=== PATIENT | female | born 1955 | race Caucasian/White ===

== ENCOUNTER → 2020-07-31 09:39 | Outpatient (BNVA) | payer OTHER, SELFPAY | PROVIDERS: Family Provider Family Medicine; Visit Provider Nurse Practitioner Family | DX: Z20.822 Contact with and (suspected) exposure to COVID-19 (principal) | CPT/HCPCS: 87635 ==

== ENCOUNTER → 2023-05-04 15:36 | Outpatient (BNVA) | payer MEDICARE, OTHER, SELFPAY | PROVIDERS: Family Provider Family Medicine; Visit Provider Specialist | DX: M25.562 Pain in left knee (principal); M25.561 Pain in right knee; M17.0 Bilateral primary osteoarthritis of knee | CPT/HCPCS: 20610; 73560; 73565; 99204; J7326 ==

== ENCOUNTER 2023-08-10 09:17 | Outpatient (RCR) | payer MEDICARE, OTHER, SELFPAY | END 2023-08-14 23:59 | disposition home or self-care (01) | LOC: SPT 09:17 | PROVIDERS: Family Provider Family Medicine; PCP Family Medicine; Visit Provider Physician Assistant Medical | DX: M17.11 Unilateral primary osteoarthritis, right knee (principal); M17.12 Unilateral primary osteoarthritis, left knee | CPT/HCPCS: 97161 ==

== ENCOUNTER → 2023-09-06 09:21 | Outpatient (BNVA) | payer MEDICARE, OTHER, SELFPAY | PROVIDERS: Family Provider Family Medicine; PCP Family Medicine; Visit Provider Student in an Organized Health Care Education/Training Program | DX: M17.11 Unilateral primary osteoarthritis, right knee (principal) | CPT/HCPCS: 99214 ==

== ENCOUNTER 2023-10-13 09:04 | Outpatient (CLI) | payer MEDICARE, OTHER, SELFPAY ==
[2023-10-13 09:29] LABS: Charge for UA Resulting for Rev
[2023-10-13 09:31] LABS: Basophils # 0.1 10^3/uL (0.0-0.1); Basophils % 1.2 %; Eosinophils # 0.1 10^3/uL (0.0-0.8); Eosinophils % 2.6 %; Hematocrit 42.5 % (36-47); Lymphocytes # 1.7 10^3/uL (0.8-4.8); Lymphocytes % 33.2 %; Mean Corpuscular HGB Conc 33.9 g/dL (30-55); Mean Corpuscular Hemoglobin 30.8 pg (27-33); Monocytes # 0.4 10^3/uL (0.2-0.9); Monocytes % 7.3 %; Neutrophils # 2.84 10^3/uL (1.8-7.7); Neutrophils % 55.7 %; Nucleated Red Blood Cells % 0 %; Platelet Count 302 10^3/cmm (157-399); Red Blood Count 4.67 10^6/uL (3.85-5.65); Red Cell Distribution Width 11.9 % (12.1-15.1); White Blood Count 5.09 10^3/uL (3.29-11.43)
[2023-10-13 09:47] LABS: Alanine Aminotransferase 13 U/L (0-33); Alkaline Phosphatase 95 U/L (35-105); Anion Gap 14.1 (5-19); Aspartate Amino Transferase 18 U/L (0-32); Blood Urea Nitrogen 15 mg/dL (8-23); Calcium 9.8 mg/dL (8.5-10.5); Carbon Dioxide 29 mmol/L (22-29); Chloride 99 mmol/L (98-107); Globulin 3.9 g/dL (1.3-4.6); Glomerular Filtration Rate 100.3 mL/min (90-130); Glucose 102 mg/dL (65-115); Osmolality Calculated 287 mOsm/kg (285-295); Potassium 4.1 mmol/L (3.5-5.1); Sodium 138 mmol/L (136-145); Total Bilirubin 0.6 mg/dL (0.15-1.2); Total Protein 8.9 g/dL (6.6-8.7)
[2023-10-13 10:54] LABS: Bilirubin Urine Negative (Negative); Blood Urine Negative (Negative); Glucose Urine UA Negative (Normal); Ketones Urine Negative (Negative); Leukocyte Esterase Urine Negative (Negative); Nitrate Urine Negative (Negative); Protein Urine Negative (Negative); Specific Gravity, Urine 1.004 (1.005-1.030); Urine Appearance Clear (CLEAR); Urine Color Yellow (Yellow); Urobilinogen Urine 0.2 mg/dL (Negative); pH Urine 6.5 (5-7)
[2023-10-13 11:02] LABS: Bacteria Urine None Seen /hpf; Hyaline Casts Urine 0-4 /lpf; Squamous Epithelial Cell Urine 0-5 /hpf (0-5); WBC Urine 0-5 /hpf (0-5)
[2023-10-13 11:07] LABS: Add Urine Culture? No
== END 2023-10-13 09:05 | disposition home or self-care (01) ==
LOC: LAB 09:08
PROVIDERS: Family Provider Family Medicine; PCP Family Medicine; Visit Provider Student in an Organized Health Care Education/Training Program
DX: Z01.818 Encounter for other preprocedural examination (principal)
CPT/HCPCS: 80053; 81003; 81015; 85025

== ENCOUNTER → 2023-10-24 11:07 | Outpatient (BNVA) | payer MEDICARE, OTHER, SELFPAY | PROVIDERS: Family Provider Family Medicine; PCP Family Medicine; Visit Provider Family Medicine | DX: Z01.818 Encounter for other preprocedural examination (principal); I49.8 Other specified cardiac arrhythmias | CPT/HCPCS: 93005 ==

== ENCOUNTER 2023-10-27 13:18 | Outpatient (CLI) | payer MEDICARE, OTHER, SELFPAY ==
--- NOTE | 2023-10-27 13:30 | CT_ITS ---
WS: [id number] CT RIGHT knee, noncontrast HISTORY: M17.11 - Unilateral primary osteoarthritis, right knee TECHNIQUE: Protocol for [facility] total knee replacement has been obtained. This includes axial imaging th rough the RIGHT hip, RIGHT knee and RIGHT ankle. DLP: 910.08 mGy.cm COMPARISON: 06/22/2023 Pelvis: No destructive bone lesions. Normal appearance of the soft tissues. RIGHT knee: Mild tricompartment joint space narrowing. No destructive bone lesions. Small suprapatell ar joint effusion. RIGHT ankle: Negative. CT/CT knee RT [facility] [id number] IMPRESSION: CT imaging provided for [facility] robotic total knee replacement.
== END 2023-10-27 13:19 | disposition home or self-care (01) ==
LOC: RAD 13:19
PROVIDERS: Family Provider Family Medicine; PCP Family Medicine; Visit Provider Student in an Organized Health Care Education/Training Program
DX: Z01.818 Encounter for other preprocedural examination (principal); M17.11 Unilateral primary osteoarthritis, right knee
CPT/HCPCS: 73700

== ENCOUNTER 2023-11-07 14:22 | Observation (INO) | payer MEDICARE, OTHER, SELFPAY ==
[2023-11-07] VITALS (16 sets, daily range): BP systolic 114–167; BP diastolic 59–98; PULSE 69–88; RESP 12–80; TEMP 36.1–37.1; O2SAT 94–100; BMI 21.4; BMI 20.7
--- NOTE | 2023-11-07 10:38 | W.PM.OPSFHP ---
Same Day Surgery H&P Indication for Procedure/HPI DATE OF PROCEDURE: November 07, 2023 CHIEF COMPLAINT/INDICATIONFOR SURGICAL PROCEDURE: Right knee degenerative joint disease PREOP DIAGNOSIS: Right knee degenerative joint disease PLANNED PROCEDURE: Operation Date: 11/07/23 12:00 Proposed Procedures p Teodoro Robot Total Knee Arthroplasty(Right) - Sen Hart DO Medications/Allergies* Home Medications Medication Instructions Recorded Confirmed Type No Known Home Medications 09/06/23 11/04/23 History Allergies/Adverse Reactions Allergy/AdvReac Type Severity Reaction Status Date / Time Sulfa (Sulfonamide Allergy Intermediate rash Verified 10/24/23 11:18 Antibiotics) Pertinent History/Comorbid Conditions* Social History Smoking and tobacco/nicotine status: never used tobacco/nicotine Alcohol intake: current Alcohol intake frequency: 0-2 Drinks per Day Substance/Drug Use: never Pertinent Exam Findings alert, oriented x 3, operative site marked and procedure specific exam findings Please refer to detailed orthopedic examination on 09/06/2023: Listed below: right Knee Exam: -ROM 0 to greater than 120 degrees -Patellar crepitus with ROM, tenderness to palpation over the retropatellar space -Positive patellar grind test -Medial joint line tenderness to palpation -Lateral joint line tenderness to palpation -Mild joint effusion -Negative Lenin's, but pain noted -Negative Chito's -Stable Varus and Valgus stress, 10 degree varus deformity correctable on examination -Gross motor sensory intact Recommendations Surgery/Procedure today Other Plans: Plan to proceed to the OR today for a right total knee arthroplasty?Teodoro robotic assisted. Patient is clear the preoperative clearance process she has had no change in overall health since her last visit she has had no new urinary symptoms at this point time she is ready to proceed with surgical intervention today she understands the ins and outs of procedure the risk benefits complication alternatives surgery and through shared decision-making elects proceed with surgical intervention today. All questions been answered at this time. Coding Level of Care Code Acute Code for Eduard Childress
[2023-11-07] MEDS: ketorolac 30 mg/mL INJ IVP (11:12)
[2023-11-07] MEDS: sodium chloride 0.9% 1,000 ML 30 ML IV (11:12)
[2023-11-07] MEDS: acetaminophen 1,000 MG/100 ML PIGGYBACK 400 MG IV ×2 (11:12→18:32)
[2023-11-07 11:15] LABS: Basophils # 0.1 10^3/uL (0.0-0.1); Basophils % 1.1 %; Eosinophils # 0.1 10^3/uL (0.0-0.8); Eosinophils % 1.3 %; Hematocrit 41.7 % (36-47); Lymphocytes # 1.6 10^3/uL (0.8-4.8); Lymphocytes % 28.9 %; Mean Corpuscular HGB Conc 33.3 g/dL (30-55); Mean Corpuscular Hemoglobin 30.6 pg (27-33); Mean Corpuscular Volume 91.9 fl (85-98); Mean Platelet Volume 9.5 fL (7.4-10.4); Monocytes # 0.4 10^3/uL (0.2-0.9); Monocytes % 6.7 %; Neutrophils # 3.33 10^3/uL (1.8-7.7); Neutrophils % 61.8 %; Nucleated Red Blood Cells % 0 %; Platelet Count 287 10^3/cmm (157-399); Red Blood Count 4.54 10^6/uL (3.85-5.65); Red Cell Distribution Width 11.9 % (12.1-15.1); White Blood Count 5.39 10^3/uL (3.29-11.43)
--- NOTE | 2023-11-07 12:07 | P.ANESASSM_ITS ---
Pre-Anesthetic Assessment Height/Weight: Height 1.65 m Weight 58.513 kg Temp Pulse Resp BP Pulse Ox O2 Del Method 98.7 F 81 18 167/79 100 Room Air 11/07/23 10:28 11/07/23 10:28 11/07/23 10:28 11/07/23 10:28 11/07/23 10:28 11/07/23 10:28 Preop Diagnosis: Right knee degenerative joint disease Operation Date: 11/07/23 12:00 Proposed Procedures p Teodoro Robot Total Knee Arthroplasty(Right) - Sen Hart DO Familial anesthetic complications: Matt Was Beta Klaus taken within 24 hours: N/A Was Clonidine taken within 24 hours: N/A Last intake: Intake Last Liquid Date 11/06/23 Last Liquid Time 22:30 Last Solid Date 11/06/23 Last Solid Time 20:00 Social No alcohol and No tobacco Exam alert, oriented x 3, clear to auscultation bilaterally and regular rate & rhythm Airway Mallampati: Class I Dentition: full Anesthetic Plan ASA status: 1 Anesthesia: Regional (specify below) Medications/Allergies Home Medications Medication Instructions Recorded Confirmed Last Taken Type No Known Home Medications 09/06/23 11/04/23 Unknown History Allergies Allergy/AdvReac Type Severity Reaction Status Date / Time Sulfa (Sulfonamide Allergy Intermediate rash Verified 10/24/23 11:18 Antibiotics) Current Medications Generic Name Dose Route Start Last Admin Trade Name Freq PRN Reason Stop Dose Admin Sodium Chloride 1,000 mls @ 30 mls/hr 11/07/23 10:15 11/07/23 11:12 Sodium Chloride 0.9% IV 11/08/23 10:14 30 mls/hr .Q24H COLIN Administration PFS Anesthesia Social History Smoking and tobacco/nicotine status: never used tobacco/nicotine Alcohol intake: current Alcohol intake frequency: 0-2 Drinks per Day Substance/Drug Use: never Data Anesthesia 11/07/23 11:06 11/07/23 11:06 Short CBC 11/07/23 Range/Units 11:06 WBC 5.39 (3.29-11.43) 10^3/uL Hgb 13.90 (11.27-16.99) g/dL Hct 41.7 (36-47) % MCV 91.9 (85-98) fl Plt Count 287 (157-399) 10^3/cmm Neut % (Auto) 61.8 % Neut # (Auto) 3.33 (1.8-7.7) 10^3/uL BMP 11/07/23 11:06 Sodium Cancelled Potassium Cancelled Chloride Cancelled Carbon Dioxide Cancelled BUN Cancelled Creatinine Cancelled Glucose Cancelled Calcium Cancelled Blood Bank 11/07/23 11:06 Blood Type O Positive Rho(D) Type Rh positive Antibody Screen Negative Cardiac Studies: 2 No Data to Display
--- NOTE | 2023-11-07 12:09 | SUR.PREOP ---
Right knee adductor nerve block done in pre op. 30ml Ropivicaine
--- NOTE | 2023-11-07 12:09 | ANES.PROC ---
Anesthesia Procedures Procedure/Date: 11/07/23 Nerve Block ^: Nerve Block 1: Main Anesthesia: spinal anesthesia block Time Out Performed: Yes Consent: requested by attending/covering physician, from patient, risks and benefits reviewed and patient agrees to proceed Nerve block location: adductor canal (R) Anesthesia monitors applied: pulse oximetry, EKG and oxygen Anesthetic Used: ropivicaine 0.5% (30) and with decadron (4 mg) Nerve Stimulator Used?: No Interscalene/Femoral BLK: 4 stimuplex 21 g needle used for position and inplane approach, visualize local anesthetic spread and no vascular puncture identified Injection: neg aspiration of heme Patient Tolerated Procedure: well Complications: none
[2023-11-07] MEDS: ceFAZolin 2,000 MG in sodium chloride 0.9% (plus) 50 ML 100 MG IV ×2 (12:13→20:40)
[2023-11-07] MEDS: tranexamic acid 1,000 mg/10mL SDV 1000 MG IV (12:36)
--- NOTE | 2023-11-07 14:11 | P.BOP_ITS ---
Date of Procedure: 11/07/2023 Surgeon: Sen Hart DO [employer] Supervisor(s): Darrian Hart PA-C Procedure(s) performed: Right total knee arthroplasty?Teodoro robotic assisted Findings of the procedure(s): Right knee severe degenerative joint disease underwent procedure as planned without issues or complications will be admitted to the floor postoperatively Estimated blood loss: 50 mL Specimen(s) removed: Tibia femur and patellar bone cuts removed Post-operative diagnosis: Right knee degenerative joint disease
--- NOTE | 2023-11-07 14:12 | P.OP_ITS ---
Operative Report Date of procedure: November 07, 2023 Surgeon: Sen Hart DO Director Of Graduate Admissions: Darrian Hart PA-C: PA was necessary for assistance in this case with leg positioning retraction and protection of neurovascular structures as well as assistance in implantation wound closure and dressing application. Procedure: Preoperative diagnosis: Right knee degenerative joint disease Post-op diagnosis: Same Procedure done: Right total knee arthroplasty, cemented?robotic assisted Teodoro Implants: Elizabeth triathlon size 4 femur CR cemented?Right Elizabeth triathlon size? 3 tibia universal baseplate cemented [place] triathlon symmetric patella size 27mm [place] triathlon polyethylene 10mm Surgeon: Sen Hart DO Estimated blood?loss: 50 mL Tourniquet 63mins IV fluids: 1000 mL Urine output: 100 mL Complications: None Condition: stable Disposition: floor Brief History: Patient is a 67-year-old female with with chronic?Right knee degenerative joint disease.? Patient has been worked up in the outpatient setting in the orthopedic office at this point time through shared decision making given? [id number] arthritis as well as failed conservative treatment, and pt would?like to proceed with a?Right total knee arthroplasty.? Through shared decision making elected to proceed with surgical intervention for?Right total knee arthroplasty.? We talked about continued conservative treatment and surgical intervention as far as the risk benefits complications alternatives surgical and nonsurgical treatment options.? At this point time understanding patient risks with surgery he agrees to proceed with surgical intervention.? Once again? risk with surgery include but are not?limited to make it better make it worse blood clot, heart attack, stroke, on the table, infection, injury to nerves or vessels, persistent pain, arthrofibrosis, implant failure.? Understanding these risks patient agrees to proceed with surgical intervention consent was obtained in the office.? All questions answered. Procedure: Patient was seen and evaluated in the preoperative holding area.? Consent was reviewed and signed with patient with plan for?Right total knee arthroplasty.? All questions answered.? Correct extremity marked.? Patient seen and evaluated by the anesthesia department and once cleared for surgery was taken back to the operative suite.? Patient was placed into a supine position on the OR table.? All bony prominences were well-padded.? Patient was appropriately secured to the bed.? Patient underwent anesthesia per the anesthesia department.? Patient received spinal anesthesia and? Lyles catheter was placed.? A nonsterile tourniquet was applied to the?Right thigh.? At this point in time a final timeout performed.? Patient received appropriate preoperative antibiotics and TXA. Next the?Right?lower extremity was then prepped and draped in standard orthopedic fashion. Esmarch tourniquet was used exsanguinate the?Right?lower ex tremity.? Tourniquet was insufflated to 250 mmHg. A standard anterior incision was made over midline of the knee.? Sharp scalpel excision through skin and subcutaneous tissue full-thickness skin flaps were made.? Fascia was elevated off of the extensor retinaculum was stable with medial parapatellar arthrotomy was then made.? The performed standard sequential releases..? Immediately on entry into the joint patient was found to have severe eburnated bone and tricompartmental arthritic changes noted.? With significant osteophyte formation.? Next the the patella was then stuffed and the knee was then flexed.?? Vaibhav was placed superiorly around the anterior aspect of the femur this was freed of synovium and I subsequently then placed by 2 femur pins to establish my femur arrays for the Teodoro robot.? These were then placed bicortically and? femur array was then appropriately secured with appropriate visualization.? Next attention was turned towards the tibial rays.? These were then drilled sequentially bicortically in parallel fashion and intraincisional.? I then placed my guide as well as my tibial array on in place.? This was appropriately secured and had excellent visualization with the Teodoro robot.? Next the tibial checkpoint as well as femur checkpoint were then placed.? At this point time I then subsequently established my head center as well as my medial?lateral malleoli as well as my checkpoints.? Next utilizing standard Teodoro technology I then mapped out the appropriate points and confirmation points around the femur as well as the tibia in standard fashion.? Once this was then done I then removed all osteophytes in preparation for dynamic testing.? All osteophytes were removed as well as I removed the ACL and the PCL was excised due to its significant tearing and degeneration noted.? At this point time the knee was brought into full extension and we performed our standard evaluation of our gap balancing stressing his?ligaments and extension as well as flexion appropriate adjustments were made to have appropriate gap balancing in both flexion and extension.? This plan for final counts.? We get a preoperative plan evaluating our implants which was a size 4 femur and a size 3 tibia.? Next we brought in the Teodoro robot and sequentially made our femur cuts.? All excess bony cuts were then removed.? Finally we made our tibial cut.? Once this was done a standard PCL retractor was then placed into this position I excised the medial and?lateral meniscus.? The tibial cut was then subsequently removed all excess bony debris was removed.? I then utilized a?lamina sap basis administrator and remove the posterior osteophytes.? At this point time sized the tibia and confirmed this was a size 3.? I utilized our blunt probe to establish rotation of tibial implant.? Once this was done I then placed my tibia size 3 trial in appropriate position and then subsequently placed tibial pins to hold this into place placed a size 10 mm poly as well as a size 4 femur which was appropriately impacted in place knee was then subsequently brought into extension. Trials were then assessed,? this was stable with varus valgus stress in extension as well as had symmetrical translation when brought into flexion demonstrating symmetrical gaps. I had excellent balance gaps in flexion and extension with varus and valgus stresses.? At this point I was satisfied with these implants these were then verified and opened on the back table size 3 tibia, size 4 femur,? size 10 mm polythickness.? We did confirm appropriate gap balancing and stresses as well as alignment utilizing? Teodoro and were satisfied with this plan.? ?At this point time with my trials in place I then towel clip the patella everted this made appropriate measurements subsequently utilizing freehand technique performed by patellar resurfacing this was confirmed to be appropriate resection and subsequently sized to be a 27 mm symmetric.? My drill peg guides were then clamped and appropriate position and appropriate position in the patella for appropriate tracking and parallel with the joint.? Pegs were drilled trial implant was placed and the knee was then subsequently ranged and found to have excellent patellar tracking.? Femur pegs were then drilled.? Satisfied with our tibial placement rotation I then utilized the keel punch and prepped the tibia.? At this point time all of our trial implants were removed.? All checkpoints as well as guidepins and arrays were removed and appropriate counts made.? The wound bed? was thoroughly irrigated and dried and prepped for cementation.? Cement was mixed on the back table.? Once cement was ready this was then covered onto the tibia and the tibial baseplate was then impacted and all excess cement was removed.? Next the polyethylene was then impacted into p lace on the tibial baseplate.? Next cement was placed onto the femur as well as under the femur implants and impacted in to place and all excess cement was extruded and removed.? Knee was taken into full extension? to clear all excess cement was removed.? Warm saline was placed over the joint.? I then towel clip patella and dried for cementation. cemented the patella into place.? This was all clamped and the cement was allowed to cure.? Thorough irrigation performed with pulse?lavage.? I then placed my periarticular injection while the cement was curing.? Once cured the knee was taken through range of motion and had excellent stability and gaps were balanced in flexion and extension.? Tourniquet was then deflated. hemostasis satisfactory with electrocautery.? Next I then subsequently closed the capsule with Ethibond suture as well as a running strata fix suture.? Knee was then taken through range of motion 20 times.? Next the skin was then closed in?layered fashion of running stratifix sutures of deep and subcutenous tissue and skin.? ?closed in flexion and Prineo glue was then placed over the incision this allowed to cure.? Incision was covered with Silverlon, with ABDs soft roll and Dennys wrap.? Patient was then awakened from anesthesia and taken to PACU in stable condition. Disposition: Patient taken to PACU in stable condition will be admitted to the floor for pain control PT/OT weight-bear as tolerated?Right?lower extremity dressing changes as needed, DVT prophylaxis. Pain control. Patient will receive appropriate postoperative antibiotics. patient will be seen today by the internal medicine team for medical management.? Patient will follow up with the office in 2 weeks.? Patient understands agrees with current plan.? All questions answered.
--- NOTE | 2023-11-07 14:16 | XRR_ITS ---
PROCEDURE INFORMATION: Exam: XR Right Knee Exam date and time: 11/07/2023 2:52 PM Age: 67 years old Clinical indication: Device placement; Joint replacement hardware; Prior surgery; Surgery date: Post-operative (0-2 days); Surgery type: S/P R tka TECHNIQUE: Imaging protocol: Radiologic exam of the right knee. Views: 1 or 2 views. COMPARISON: CT knee RT [facility] [id number] 10/27/2023 1:45 PM FINDINGS: Bones/joints: Total-knee replacement. Anatomic alignment. Bone and metal are intact. Intra-articular gas. Soft tissues: Normal. Other findings: . XR/XR knee RT 1-2V [id number] IMPRESSION: Normal following replacement.
--- NOTE | 2023-11-07 14:42 | PM.PACU ---
PACU note Narrative: Patient is a 67-year-old female just underwent a right total knee arthroplasty. Pt transferred to PACU in stable condition. Dressing is dry. pt is awake and alert. pt can wiggle toes and plantarflex and dorsiflex foot. pt able to perform straight leg raise, Femoral nerve intact. Distal pulses are palpable toes are warm and well-perfused. Cap refill is normal and under 2 seconds. Sensation to foot is intact. Pain is controlled. Exam: awake Disposition: admitted
--- NOTE | 2023-11-07 15:10 | ANE.PACU2 ---
Inpatient post-anesthesia follow up: Airway intact: Yes Vital signs: Temperature 97.9 F Pulse Rate 75 Respiratory Rate 21 Blood Pressure 150/77 Pulse Oximetry 98 Oxygen Delivery Me thod Room Air Oxygen Flow Rate Fraction of Inspir ed Oxygen Hydration adequate: Yes Nausea and vomiting: No Pain level: 1 Mental status: Baseline
[2023-11-07] MEDS: cetylpyridinium Lozenge 1 EACH MUCOUS MEM (16:35)
[2023-11-07] MEDS: oxyCODONE 5 mg IR Tab/Cap PO (16:35)
[2023-11-07] MEDS: lactated ringers 1,000 ML 100 ML IV (16:38)
[2023-11-07] MEDS: chlorhexidine gluconate 0.12% Btl 473 mL 30 ML MUCOUS MEM ×2 (17:50→20:40)
[2023-11-07] MEDS: docusate sodium 100 mg Capsule PO (17:51)
[2023-11-07] MEDS: calcium carb-vit d 600mg/400unit 1 Tablet 1 EACH PO (17:51)
[2023-11-07] MEDS: sennosides-docusate Tablet 2 TAB PO (17:51)
[2023-11-07] MEDS: iron polysaccharide complex 150 mg Capsule PO (17:51)
[2023-11-07] MEDS: mupirocin oint 22 gm 1 APPLIC NASAL (17:52)
[2023-11-07] MEDS: tranexamic acid 1,000 MG/100 ML PREMIX 600 MG IV (17:54)
--- NOTE | 2023-11-07 18:12 | P.CONIM_ITS ---
Providers/Reason For Consult 2 Consulting Physician/Specialty*: Dr Kristyn Tompkins, Medicine Reason for Consult*: Management of medical condition Requesting Physician: Dr Hart Attending Physician: Sen Hart DO Primary Care Provider: Stephanie Schreiber MD History of Present Illness History of Present Illness Mera Montalvo is a 67 year old female with no significant past medical history currently being manage s/p right total knee arthroplasty. Patient seen on medical surgical floor, complained of minimal right knee pain postsurgery but denies any nausea, vomiting or any other complaints. She does not take any medications at home and has last seen her PCP 7 years ago. She has been very active with her exercise schedule and yogasanas. On floor she was found to have elevated blood pressure with systolic blood pressure in 150s. No past medical history of hypertension. Review of Systems 2 General: Reports: 10 or more systems reviewed and unremarkable except in HPI and below Medications/Allergies Home Medications Medication Instructions Recorded Confirmed Last Taken Type No Known Home Medications 09/06/23 11/04/23 Unknown History Allergies Allergy/AdvReac Type Severity Reaction Status Date / Time Sulfa (Sulfonamide Allergy Intermediate rash Verified 10/24/23 11:18 Antibiotics) Current Medications Generic Name Dose Route Start Last Admin Trade Name Freq PRN Reason Stop Dose Admin Calcium Carbonate 1 each 11/07/23 18:00 11/07/23 17:51 Calcium Carb-Vit D 600mg/400unit 1 Tablet PO 1 each BID COLIN Administration Chlorhexidine Gluconate 30 ml 11/07/23 17:00 11/07/23 17:50 Chlorhexidine Gluconate 0.12% Btl 473 Ml MUCOUS MEM 30 ml QID COLIN Administration Docusate Sodium 100 mg 11/07/23 18:00 11/07/23 17:51 Docusate Sodium 100 Mg Capsule PO 100 mg BID COLIN Administration Tranexamic Acid 1,000 mg in 100 mls @ 600 mls/hr 11/07/23 18:12 11/07/23 17:54 Tranexamic Acid IV 11/07/23 18:21 600 mls/hr ONCE ONE Administration Lactated Ringer's 1,000 mls @ 100 mls/hr 11/07/23 15:26 11/07/23 16:38 Lactated Ringers IV 100 mls/hr .Q10H COLIN Administration Mupirocin 1 applic 11/07/23 18:00 11/07/23 17:52 Mupirocin Oint 22 Gm NASAL 11/12/23 17:59 1 applic BID COLIN Administration Protocol Oxycodone HCl 5 mg 11/07/23 15:26 11/07/23 16:35 Oxycodone 5 Mg Ir Tab/Cap PO 5 mg Q4H PRN Administration MODERATE PAIN Polysaccharide Iron Complex 150 mg 11/07/23 18:00 11/07/23 17:51 Iron Polysaccharide Complex 150 Mg Capsule PO 150 mg BIDWM COLIN Administration Senna/Docusate Sodium 2 tab 11/07/23 18:00 11/07/23 17:51 Sennosides-Docusate Tablet PO 2 tab BID COLIN Administration PFSH Acute 2 PFSH: Social History Smoking and tobacco/nicotine status: never used tobacco/nicotine Alcohol intake: current Alcohol intake frequency: 0-2 Drinks per Day Substance/Drug Use: never Vitals/I&O/Wt Last Vital Signs Temp 98.5 F 11/07/23 15:26 Pulse 85 11/07/23 16:35 Resp 18 11/07/23 16:35 BP 151/81 11/07/23 16:20 Pulse Ox 98 11/07/23 16:35 O2 Del Method Room Air 11/07/23 17:04 11/07/23 11/07/23 11/07/23 06:59 14:59 22:59 Intake Total 600 / 600 340 / 940 Output Total 150 / 150 1000 / 1150 Balance 450 / 450 -660 / -210 Weight last 48 hrs Weight 58.513 kg Physical Exam 2 Narrative: She is very pleasant, alert awake and oriented x 4 Chest clear to auscultation bilaterally Cardiovascular normal heart sounds Abdomen soft nontender nondistended normal bowel sounds Extremities right knee dressing present. Restricted ROM present No edema present left lower extremity, Urinary Catheter Management: Lyles: Cath Placed During This Visit: yes Urinary Catheter Date of Insertion: 11/07/23 Urinary Catheter Time of Insertion: 12:30 Data 11/07/23 11:06 11/07/23 11:06 A&P Assessment and plan (1) Loose right total knee arthroplasty: (2) Prehypertension: Plan Systolic blood pressure in 150s, likely secondary to pain and postsurgical will monitor blood pressure for now. Patient educated and counseled about regular monitoring of blood pressure at home and follow-up PCP if consistently elevated. Counseled about low-sodium diet and exercise. Continue current management and medications as per primary team. Consult Attestations 2 Medical Necessity Statement: She is here for management of s/p right knee total arthroplasty. Time Spent in Patient Care: 25 minutes Coding Level of Care Code Acute Code for Chg Fwd Diagnoses Loose right total knee arthroplasty T84.032A Prehypertension R03.0 Time Spent (min) 25
[2023-11-07] MEDS: ondansetron 2 mg/ML SDV 2 mL 4 MG IVP (23:11)
[2023-11-08] MEDS: acetaminophen 1,000 MG/100 ML PIGGYBACK 400 MG IV (02:28)
[2023-11-08] MEDS: lactated ringers 1,000 ML 100 ML IV (02:28)
[2023-11-08] MEDS: TRAMadol 50 mg Tablet PO (03:57)
[2023-11-08] MEDS: ceFAZolin 2,000 MG in sodium chloride 0.9% (plus) 50 ML 100 MG IV (03:58)
[2023-11-08 04:00] VITALS: BP 158/84; PULSE 71; RESP 15; TEMP 36.6; O2SAT 98
[2023-11-08] MEDS: ondansetron 2 mg/ML SDV 2 mL 4 MG IVP (05:19)
[2023-11-08 05:30] LABS: Basophils % 0.2 %; Eosinophils % 0.1 %; Hematocrit 29.9 % (36-47); Lymphocytes # 1.2 10^3/uL (0.8-4.8); Lymphocytes % 9.6 %; Mean Corpuscular HGB Conc 33.1 g/dL (30-55); Mean Corpuscular Hemoglobin 30.1 pg (27-33); Mean Corpuscular Volume 90.9 fl (85-98); Mean Platelet Volume 9.3 fL (7.4-10.4); Neutrophils # 9.83 10^3/uL (1.8-7.7); Neutrophils % 81.6 %; Nucleated Red Blood Cells % 0 %; Platelet Count 212 10^3/cmm (157-399); Red Blood Count 3.29 10^6/uL (3.85-5.65); Red Cell Distribution Width 11.9 % (12.1-15.1); White Blood Count 12.04 10^3/uL (3.29-11.43)
[2023-11-08 05:49] LABS: Anion Gap 12.9 (5-19); Blood Urea Nitrogen 13 mg/dL (8-23); Calcium 8.3 mg/dL (8.5-10.5); Carbon Dioxide 23 mmol/L (22-29); Chloride 99 mmol/L (98-107); Creatinine Clr Calc Pharmacy 67.2903; Glucose 143 mg/dL (65-115); Osmolality Calculated 275 mOsm/kg (285-295); Potassium 3.9 mmol/L (3.5-5.1); Sodium 131 mmol/L (136-145)
[2023-11-08] MEDS: multivitamin therapeutic Tablet 1 TAB PO (08:36)
[2023-11-08] MEDS: sennosides-docusate Tablet 2 TAB PO (08:36)
[2023-11-08] MEDS: iron polysaccharide complex 150 mg Capsule PO (08:37)
[2023-11-08] MEDS: apixaban 5 mg Tablet 2.5 MG PO (08:37)
[2023-11-08] MEDS: calcium carb-vit d 600mg/400unit 1 Tablet 1 EACH PO (08:37)
[2023-11-08] MEDS: mupirocin oint 22 gm 1 APPLIC NASAL (08:37)
[2023-11-08] MEDS: docusate sodium 100 mg Capsule PO (08:37)
[2023-11-08] MEDS: chlorhexidine gluconate 0.12% Btl 473 mL 30 ML MUCOUS MEM (08:42)
--- NOTE | 2023-11-08 09:34 | PC.CHAP ---
Pastoral Care Encounter/Spiritual Assessment Type of Contact [] Declined sales consulting director visit [] Patient/Family/Request visit [] Outpatient visit [] Follow-up visit [] Physician referral [] Code/Alert [x] Routine visit [] Staff referral [] Actively dying [] Patient sleeping [] Family support [] [] Out of room [] Palliative care [] [] Receiving care in room [] Pre-surgical visit [] Trauma [] Long length of stay [] ICU visit [] Other: Relational/Emotional Strength [x] Patient feels connected with others/family/visitors/staff [] Distress [] Loneliness/isolation [] Abandonment Spirituality of Patient [x] Person of Abi [] Attends Yazdanism of their Abi [x] Believes in Prayer [] Reads Bible or Samaritan materials [] There are Spiritual issues to be addressed Metal Bumper Interventions [x] Prayer [x] Active listening [] Non-anxious presence [x] Spiritual/emotional support [] Crisis/trauma care [] Spiritual counseling [] Bereavement support [] Provided bereavement packet [] Provided Bible/devotional materials [] Provided toy/stuffed animal, coloring book to patient or family member [] Provided Communion [] Anointing/[facility] [] Salvation [x] Completed spiritual assessment [] Other: Impact on Illness or Injury [] Angry [] Fearful [] Anxious [] Often cries [] Exhaustion [] Unable to work [] Unable to attend episcopalian [] Unable to walk/stand [] Unable to read [] Unable to drive [] Unable to eat/drink [] Unable to sleep [] Unable to be with family [] Patient intubated [] Other: Summary Time spent with patient 5 min
[2023-11-08 11:32] VITALS: BP 158/84; PULSE 71; RESP 15; TEMP 36.6; O2SAT 98
== END 2023-11-08 10:45 | disposition home or self-care (01) ==
LOC: MEDSURG 14:22
PROVIDERS: Physician Assistant; Admitting Provider Student in an Organized Health Care Education/Training Program; PCP Family Medicine; Visit Provider Student in an Organized Health Care Education/Training Program
PROC: 8E0Y0CZ Robotic Assisted Procedure of Lower Extremity, Open Approach (ICD-10-PCS; CPT 27447; principal; 2023-11-07 12:00)
DX: M17.11 Unilateral primary osteoarthritis, right knee (principal); R03.0 Elevated blood-pressure reading, without diagnosis of hypertension
CPT/HCPCS: 20985; 27447; 36415; 51702; 73560; 80048; 85025; 86850; 86900; 97110; 97116; 97161; 97165; C1776; G0378; J0131; J0690; J1100; J1885; J2371; J2405; J2704; J2795; J7030; J7120

== ENCOUNTER → 2023-11-22 09:34 | Outpatient (BNVA) | payer MEDICARE, OTHER, SELFPAY | PROVIDERS: PCP Family Medicine; Visit Provider Physician Assistant | DX: M25.561 Pain in right knee (principal); Z96.651 Presence of right artificial knee joint | CPT/HCPCS: 73560; 73565; 99024 ==

== ENCOUNTER 2023-11-30 11:27 | Outpatient (RCR) | payer MEDICARE, OTHER, SELFPAY | END 2023-12-15 23:59 | disposition home or self-care (01) | LOC: SPT 11:27 | PROVIDERS: PCP Family Medicine; Visit Provider Student in an Organized Health Care Education/Training Program | DX: Z47.1 Aftercare following joint replacement surgery (principal); Z96.651 Presence of right artificial knee joint | CPT/HCPCS: 97110; 97161 ==

== ENCOUNTER 2023-12-16 06:00 | Outpatient (RCR) | payer MEDICARE, OTHER, SELFPAY | END 2024-01-14 23:59 | disposition home or self-care (01) | LOC: SPT 06:00 | PROVIDERS: PCP Family Medicine; Visit Provider Student in an Organized Health Care Education/Training Program | DX: Z47.1 Aftercare following joint replacement surgery (principal); Z96.651 Presence of right artificial knee joint | CPT/HCPCS: 97110 ==

== ENCOUNTER → 2023-12-20 14:40 | Outpatient (BNVA) | payer MEDICARE, OTHER, SELFPAY | PROVIDERS: PCP Family Medicine; Visit Provider Physician Assistant | DX: Z96.651 Presence of right artificial knee joint (principal) | CPT/HCPCS: 73560; 73565; 99024 ==

== ENCOUNTER 2024-01-19 10:25 | Outpatient (RCR) | payer MEDICARE, OTHER, SELFPAY | END 2024-01-26 23:59 | disposition home or self-care (01) | LOC: SPT 10:25 | PROVIDERS: PCP Family Medicine; Visit Provider Student in an Organized Health Care Education/Training Program | DX: Z47.1 Aftercare following joint replacement surgery (principal); Z96.651 Presence of right artificial knee joint | CPT/HCPCS: 97110 ==

== ENCOUNTER → 2024-01-31 14:33 | Outpatient (BNVA) | payer MEDICARE, OTHER, SELFPAY | PROVIDERS: PCP Family Medicine; Visit Provider Student in an Organized Health Care Education/Training Program | DX: Z96.651 Presence of right artificial knee joint (principal); M17.12 Unilateral primary osteoarthritis, left knee | CPT/HCPCS: 73560; 73565; 99214 ==

== ENCOUNTER 2024-02-22 12:30 | Outpatient (CLI) | payer MEDICARE, OTHER, SELFPAY ==
--- NOTE | 2024-02-22 12:45 | CT_ITS ---
WS: [id number] CT LEFT knee, noncontrast HISTORY: M17.12 - Unilateral primary osteoarthritis, left knee TECHNIQUE: Protocol for [facility] total knee replacement has been obtained. This includes axial imaging th rough the LEFT hip, LEFT knee and LEFT ankle. DLP: 979.86 mGy.cm COMPARISON: 01/31/2024 Symmetric appearance of the hips. Mild RIGHT SI joint sacroiliitis. No destructive bone mass. LEFT knee: Tricompartment joint space narrowing. Moderate lateral subluxation of the patella. Moderate size suprapatellar joint effusion. LEFT ankle: Negative. CT/CT knee LT [facility] [id number] IMPRESSION: CT imaging provided for [facility] robotic total knee replacement.
== END 2024-02-22 12:31 | disposition home or self-care (01) ==
LOC: RAD 12:31
PROVIDERS: PCP Family Medicine; Visit Provider Student in an Organized Health Care Education/Training Program
DX: M17.12 Unilateral primary osteoarthritis, left knee (principal); M46.1 Sacroiliitis, not elsewhere classified; S83.012A Lateral subluxation of left patella, initial encounter; X58.XXXA Exposure to other specified factors, initial encounter
CPT/HCPCS: 73700

== ENCOUNTER → 2024-03-01 15:02 | Outpatient (BNVA) | payer MEDICARE, OTHER, SELFPAY | PROVIDERS: PCP Family Medicine; Visit Provider Physician Assistant | DX: Z01.818 Encounter for other preprocedural examination (principal); M17.12 Unilateral primary osteoarthritis, left knee; Z96.651 Presence of right artificial knee joint | CPT/HCPCS: 36415; 80053; 81001; 85025; 99213 ==

== ENCOUNTER 2024-03-19 09:55 | Observation (INO) | payer MEDICARE, OTHER, SELFPAY ==
[2024-03-19] VITALS (17 sets, daily range): BP systolic 114–180; BP diastolic 62–87; PULSE 63–88; RESP 14–22; TEMP 32.9–37; O2SAT 93–100; BMI 19.8
[2024-03-19 06:27] LABS: Basophils # 0.1 10^3/uL (0.0-0.1); Basophils % 1.4 %; Eosinophils # 0.2 10^3/uL (0.0-0.8); Eosinophils % 3.3 %; Hematocrit 42.5 % (36-47); Lymphocytes # 2.1 10^3/uL (0.8-4.8); Lymphocytes % 39.9 %; Mean Corpuscular HGB Conc 33.2 g/dL (30-55); Mean Corpuscular Hemoglobin 29.1 pg (27-33); Mean Corpuscular Volume 87.6 fl (85-98); Monocytes # 0.4 10^3/uL (0.2-0.9); Neutrophils # 2.43 10^3/uL (1.8-7.7); Neutrophils % 47.2 %; Nucleated Red Blood Cells % 0 %; Platelet Count 315 10^3/cmm (157-399); Red Blood Count 4.85 10^6/uL (3.85-5.65); Red Cell Distribution Width 12.3 % (12.1-15.1); White Blood Count 5.14 10^3/uL (3.29-11.43)
[2024-03-19] MEDS: sodium chloride 0.9% 1,000 ML 30 ML IV (06:43)
[2024-03-19 06:57] LABS: Anion Gap 19.5 (5-19); Blood Urea Nitrogen 15 mg/dL (8-23); Calcium 9.9 mg/dL (8.5-10.5); Carbon Dioxide 25 mmol/L (22-29); Chloride 97 mmol/L (98-107); Creatinine Clr Calc Pharmacy 60.9243; Glomerular Filtration Rate 83.7 mL/min (90-130); Glucose 97 mg/dL (65-115); Osmolality Calculated 287 mOsm/kg (285-295); Potassium 3.5 mmol/L (3.5-5.1); Sodium 138 mmol/L (136-145)
--- NOTE | 2024-03-19 06:58 | W.PM.OPSUD ---
Surgery/Procedure H&P Update DATE OF PROCEDURE: March 19, 2024 DATE H&P PERFORMED: 03/01/24 H&P UPDATE INFORMATION: I have reviewed H&P completed within last 30 days, I have examined patient prior to procedure and No changes to prior documentation PREOP DIAGNOSIS: Left knee degenerative joint disease PRIMARY INDICATION FOR PROCEDURE: Left knee degenerative joint disease PLANNED PROCEDURE: Operation Date: 03/19/24 07:00 Proposed Procedures p Teodoro Robot Total Knee Arthroplasty(Left) - Sen Hart DO
--- NOTE | 2024-03-19 07:04 | P.ANESASSM_ITS ---
Pre-Anesthetic Assessment Height/Weight: Height 1.65 m Weight 53.977 kg Temp Pulse Resp BP Pulse Ox O2 Del Method 98 F 83 16 180/87 98 Room Air 03/19/24 05:56 03/19/24 05:56 03/19/24 05:56 03/19/24 05:56 03/19/24 05:56 03/19/24 05:56 Preop Diagnosis: Left knee degenerative joint disease Operation Date: 03/19/24 07:00 Proposed Procedures p Teodoro Robot Total Knee Arthroplasty(Left) - Sen Hart DO Familial anesthetic complications: None Was Beta Klaus taken within 24 hours: N/A Was Clonidine taken within 24 hours: N/A Last intake: Intake Last Liquid Date 03/18/24 Last Liquid Time 20:00 Last Solid Date 03/18/24 Last Solid Time 18:30 Social No alcohol and No tobacco Exam alert, oriented x 3, clear to auscultation bilaterally and regular rate & rhythm Airway Mallampati: Class II Dentition: full Anesthetic Plan ASA status: 1 Anesthesia: Regional (specify below) Risk of > 500 ml blood loss (7ml/kg in children): No Medications/Allergies Home Medications Medication Instructions Recorded Confirmed Last Taken Type No Known Home Medications 01/31/24 03/19/24 Unknown History Allergies Allergy/AdvReac Type Severity Reaction Status Date / Time Sulfa (Sulfonamide Allergy Intermediate rash Verified 03/15/24 12:13 Antibiotics) Current Medications Generic Name Dose Route Start Last Admin Trade Name Freq PRN Reason Stop Dose Admin Sodium Chloride 1,000 mls @ 30 mls/hr 03/19/24 06:00 03/19/24 06:43 Sodium Chloride 0.9% IV 03/20/24 05:59 30 mls/hr .Q24H COLIN Administration PFSH Anesthesia Social History Smoking and tobacco/nicotine status: never used tobacco/nicotine Alcohol intake: current Alcohol intake frequency: 0-2 Drinks per Day Substance/Drug Use: never Data Anesthesia 03/19/24 06:07 03/19/24 06:07 Short CBC 03/19/24 Range/Units 06:07 WBC 5.14 (3.29-11.43) 10^3/uL Hgb 14.10 (11.27-16.99) g/dL Hct 42.5 (36-47) % MCV 87.6 (85-98) fl Plt Count 315 (157-399) 10^3/cmm Neut % (Auto) 47.2 % Neut # (Auto) 2.43 (1.8-7.7) 10^3/uL BMP 03/19/24 06:07 Sodium 138 Potassium 3.5 Chloride 97 L Carbon Dioxide 25 BUN 15 Creatinine 0.7 Glucose 97 Calcium 9.9 Cardiac Studies: 2 No Data to Display
--- NOTE | 2024-03-19 07:04 | ANES.PROC ---
Anesthesia Procedures Procedure/Date: 03/19/24 Nerve Block ^: Nerve Block 1: Main Anesthesia: spinal anesthesia block Time Out Performed: Yes Consent: requested by attending/covering physician, from patient, from other, risks and benefits reviewed and patient agrees to proceed Nerve block location: adductor canal (L) Anesthesia monitors applied: pulse oximetry, EKG, BP cuff and oxygen Nerve block position: supine Anesthetic Used: ropivicaine 0.5% (25 cc) Ultrasound used to: recognize landmarks and visualize and ID femerol nerve Nerve Stimulator Used?: No Interscalene/Femoral BLK: 4 stimuplex 21 g needle used for position and inplane approach, visualize local anesthetic spread and no vascular puncture identified Injection: neg aspiration of heme Patient Tolerated Procedure: well Complications: none
[2024-03-19] MEDS: acetaminophen 1,000 MG/100 ML PIGGYBACK 400 MG IV ×3 (07:14→23:13)
[2024-03-19] MEDS: ketorolac 30 mg/mL INJ IVP (07:15)
[2024-03-19] MEDS: scopolamine 1 mg PATCH 1 PATCH TRANSDERMA (07:18)
[2024-03-19] MEDS: ceFAZolin 2,000 mg SDV 2000 MG IVP (07:20)
--- NOTE | 2024-03-19 07:47 | XRR_ITS ---
PROCEDURE INFORMATION: Exam: XR Left Knee Exam date and time: 03/19/2024 9:58 AM Age: 68 years old Clinical indication: Device placement; Joint replacement hardware; Prior surgery; Surgery date: Post-operative (0-2 days); Surgery type: Post L tka; Additional info: Post L tka, do in pacu TECHNIQUE: Imaging protocol: Radiologic exam of the left knee. Views: 1 or 2 views. COMPARISON: CT knee LT [facility] [id number] 02/22/2024 12:37 PM FINDINGS: Bones/joints: Status post left total knee arthroplasty without evidence of hardware abnormality. Postsurgical emphysema. Normal alignment. Soft tissues: Postsurgical emphysema. XR/XR knee LT 1-2V [id number] IMPRESSION: Status post left total knee arthroplasty without evidence of hardware abnormality.
[2024-03-19] MEDS: tranexamic acid 1,000 mg/10mL SDV 1000 MG IV (07:49)
--- NOTE | 2024-03-19 09:29 | W.PM.BPON ---
Date of Procedure: 03/19/2024 Surgeon: Sen Hart DO Stonecutter Hand(s): Darrian Hart PA-C Procedure(s) performed: Left total knee arthroplasty?Teodoro robotic assist Findings of the procedure(s): Left knee degenerative joint disease, underwent procedure as planned without issues or complications Estimated blood loss: 25mL Specimen(s) removed: Tibia femur and patellar bone cuts removed Post-operative diagnosis: Left knee degenerative joint disease
--- NOTE | 2024-03-19 09:30 | P.OP_ITS ---
Operative Report Date of procedure: March 19, 2024 Surgeon: Sen Hart DO Financial Systems Director: Darrian Hart PA-C: PA was necessary for assistance in this case with leg positioning retraction and protection of neurovascular structures as well as assistance in implantation wound closure and dressing application. Procedure: Preoperative diagnosis: Left knee degenerative joint disease Post-op diagnosis: Same Procedure done: Left total knee arthroplasty, cemented?robotic assisted Teodoro Implants: [place] triathlon size 3 femur CR cemented?left [place] triathlon size? 3 tibia universal baseplate cemented Yorkshire triathlon symmetric patella size 27 mm Elizabeth triathlon polyethylene 10mm Surgeon: Sen Hart DO Estimated blood?loss: 25 mL Tourniquet 59minutes IV fluids: 800 mL Urine output: 800 mL Complications: None Condition: stable Disposition: floor Brief History: Patient is a 68-year-old female with with chronic?left knee degenerative joint d isease.? Patient has been worked up in the outpatient setting in the orthopedic office at this point time through shared decision making given? [id number] arthritis as well as failed conservative treatment, and pt would?like to proceed with a?left total knee arthroplasty.? Patient has done well with a right total knee arthroplasty and ready proceed with the left side. Through shared decision making elected to proceed with surgical intervention for?left total knee arthroplasty.? We talked about continued conservative treatment and surgical intervention as far as the risk benefits complications alternatives surgical and nonsurgical treatment options.? At this point time understanding patient risks with surgery he agrees to proceed with surgical intervention.? Once again? risk with surgery include but are not?limited to make it better make it worse blood clot, heart attack, stroke, on the table, infection, injury to nerves or vessels, persistent pain, arthrofibrosis, implant failure.? Understanding these risks patient agrees to proceed with surgical intervention consent was obtained in the preoperative holding area.? All questions answered. Procedure: Patient was seen and evaluated in the preoperative holding area.? Consent was reviewed and signed with patient with plan for?left total knee arthroplasty.? All questions answered.? Correct extremity marked.? Patient seen and evaluated by the anesthesia department and once cleared for surgery was taken back to the operative suite.? Patient was placed into a supine position on the OR table.? All bony prominences were well-padded.? Patient was appropriately secured to the bed.? Patient underwent anesthesia per the anesthesia department.? Patient received spinal anesthesia and? Lyles catheter was placed.? A nonsterile tourniquet was applied to the?left thigh.? At this point in time a final timeout performed.? Patient received appropriate preoperative antibiotics and TXA. Next the?left?lower extremity was then prepped and draped in standard orthopedic fashion. Esmarch tourniquet was used exsanguinate the?left?lower extremity.? Tourniquet was insufflated to 250 mmHg. A standard anterior incision was made over midline of the knee.? Sharp scalpel excision through skin and subcutaneous tissue full-thickness skin flaps were made.? Fascia was elevated off of the extensor retinaculum was stable with medial parapatellar arthrotomy was then made.? The performed standard sequential releases..? Immediately on entry into the joint patient was found to have severe eburnated bone and tricompartmental arthritic changes noted.? With significant osteophyte formation.? Next the the patella was then stuffed and the knee was then flexed.?? Vaibhav was placed superiorly around the anterior aspect of the femur this was freed of synovium and I subsequently then placed by 2 femur pins to establish my femur arrays for the Teodoro robot.? These were then placed bicortically and? femur array was then appropriately secured with appropriate visualization.? Next attention was turned towards the tibial rays.? These were then drilled sequentially bicortically in parallel fashion and intraincisional.? I then placed my guide as well as my tibial array on in place.? This was appropriately secured and had excellent visualization with the Teodoro robot.? Next the tibial checkpoint as well as femur checkpoint were then placed.? At this point time I then subsequently established my head center as well as my medial?lateral malleoli as well as my checkpoints.? Next utilizing standard Teodoro technology I then mapped out the appropriate points and confirmation points around the femur as well as the tibia in standard fashion.? Once this was then done I then removed all osteophytes in preparation for dynamic testing.? All os teophytes were removed as well as I removed the ACL and the PCL was excised due to its significant tearing and degeneration noted.? At this point time the knee was brought into full extension and we performed our standard evaluation of our gap balancing stressing his?ligaments and extension as well as flexion appropriate adjustments were made to have appropriate gap balancing in both flexion and extension.? Patient had varus deformity and was able to correct to tolerance of her ligaments for balancing. This plan for final cuts.? We get a preoperative plan evaluating our implants which was a size 3 femur and a size 3 tibia.? Next we brought in the Teodoro robot and sequentially made our femur cuts.? All excess bony cuts were then removed.? Finally we made our tibial cut.? Once this was done a standard PCL retractor was then placed into this position I excised the medial and?lateral meniscus.? The tibial cut was then subsequently removed all excess bony debris was removed.? I then utilized a?lamina cyber defense forensics analyst and remove the posterior osteophytes.? At this point time sized the tibia and confirmed this was a size 3.? I utilized our blunt probe to establish rotation of tibial implant.? Once this was done I then placed my tibia size 3 trial in appropriate position and then subsequently placed tibial pins to hold this into place and trialed up to a size 10 mm poly as well as a size 3 femur which was appropriately impacted in place knee was then subsequently brought into extension. Trials were then assessed,? this was stable with varus valgus stress in extension as well as had symmetrical translation when brought into flexion demonstrating symmetrical gaps. I had excellent balance gaps in flexion and extension with varus and valgus stresses.? At this point I was satisfied with th noemi implants these were then verified and opened on the back table size 3 tibia, size3 femur,? size 10 mm polythickness.? We did confirm appropriate gap balancing and stresses as well as alignment utilizing? Teodoro and were satisfied with this plan.? ?At this point time with my trials in place I then towel clip the patella everted this made appropriate measurements subsequently utilizing freehand technique performed by patellar resurfacing this was confirmed to be appropriate resection and subsequently sized to be a 27 mm symmetric.? My drill peg guides were then clamped and appropriate position and appropriate position in the patella for appropriate tracking and parallel with the joint.? Pegs were drilled trial implant was placed and the knee was then subsequently ranged and found to have excellent patellar tracking.? Femur pegs were then drilled.?All checkpoints as well as guidepins and arrays were removed and appropriate counts made.? Satisfied with our tibial placement rotation I then utilized the keel punch and prepped the tibia.? At this point time all of our trial implants were removed.? The wound bed? was thoroughly irrigated and dried and prepped for cementation.? Cement was mixed on the back table.? Once cement was ready this was then covered onto the tibia and the tibial baseplate was then impacted and all excess cement was removed.? Next the polyethylene was then impacted into place on the tibial baseplate.? Next cement was placed onto the femur as well as under the femur implants and impacted in to place and all excess cement was extruded and removed.? Knee was taken into full extension? to clear all excess cement was removed.? Warm saline was placed over the joint.? I then towel clip patella and dried for cementation. cemented the patella into place.? This was all clamped and the cement was allowed to cure.? Thorough irrigation performed with pulse?lavage.? I then placed my periarticular injection while the cement was curing.? Once cured the knee was taken through range of motion and had excellent stability and gaps were balanced in flexion and extension.? Tourniquet was then deflated. hemostasis satisfactory with electrocautery.? Next I then subsequently closed the capsule with Ethibond suture as well as a running strata fix suture.? Knee was then taken through range of motion 30 times.? Next the skin was then closed in?layered fashion of running stratifix sutures of deep and subcutenous tissue and skin.? ?closed in flexion and Prineo glue was then placed over the incision this allowed to cure.? Incision was covered with Silverlon, with ABDs soft roll and Dennys wrap.? Patient was then awakened from anesthesia and taken to PACU in stable condition. Disposition: Patient taken to PACU in stable condition will be admitted to the floor for pain control PT/OT weight-bear as tolerated?left?lower extremity dressing changes as needed, DVT prophylaxis. Pain control. Patient will receive appropriate postoperative antibiotics. patient will be seen today by the internal medicine team for medical management.? Patient will follow up with the office in 2 weeks.? Patient understands agrees with current plan.? All questions answered.
[2024-03-19] MEDS: fentaNYL 50 mcg/mL INJ 2mL IVP (10:02)
--- NOTE | 2024-03-19 10:08 | PM.PACU ---
PACU note Narrative: Patient is a 68-year-old female that just underwent a left total knee arthroplasty. Pt transferred to PACU in stable condition. Dressing is dry. pt is awake and alert. pt can wiggle toes and plantarflex and dorsiflex foot. pt able to perform straight leg raise, Femoral nerve intact. Distal pulses are palpable toes are warm and well-perfused. Cap refill is normal and under 2 seconds. Sensation to foot is intact. Pain is controlled. Exam: awake Disposition: admitted
--- NOTE | 2024-03-19 10:50 | ANE.PACU2 ---
Inpatient post-anesthesia follow up: Airway intact: Yes Vital signs: Temperature 98.6 F Pulse Rate 67 Respiratory Rate 19 Blood Pressure 131/78 Pulse Oximetry 99 Oxygen Delivery Me thod Room Air Oxygen Flow Rate Fraction of Inspir ed Oxygen Hydration adequate: Yes Nausea and vomiting: No Pain level: 1 Mental status: Baseline
--- NOTE | 2024-03-19 11:09 | SUR.PHASEI ---
1100 Pt taken to room 268. VSS Afebrile. Nurse Rita accepted care of patient.
[2024-03-19] MEDS: chlorhexidine gluconate 0.12% Btl 473 mL 30 ML MUCOUS MEM ×3 (12:16→21:15)
[2024-03-19] MEDS: mupirocin oint 22 gm 1 APPLIC NASAL ×2 (12:16→18:09)
[2024-03-19] MEDS: multivitamin therapeutic Tablet 1 TAB PO (12:17)
[2024-03-19] MEDS: docusate sodium 100 mg Capsule PO ×2 (12:17→18:09)
[2024-03-19] MEDS: iron polysaccharide complex 150 mg Capsule PO ×2 (12:17→18:09)
[2024-03-19] MEDS: calcium carb-vit d 600mg/400unit 1 Tablet 1 EACH PO ×2 (12:17→18:09)
[2024-03-19] MEDS: lactated ringers 1,000 ML 75 ML IV ×2 (12:18→23:16)
[2024-03-19] MEDS: ceFAZolin 2,000 MG in sodium chloride 0.9% (plus) 50 ML 100 MG IV (15:18)
[2024-03-19] MEDS: tranexamic acid 1,000 MG/100 ML PREMIX 600 MG IV (15:18)
--- NOTE | 2024-03-19 19:42 | PC.NURSE ---
Verbal orders From Dr. Hart for Robaxin 500 mg PO TID PRN
[2024-03-19] MEDS: methocarbamol 500 mg Tablet PO (21:07)
[2024-03-20] VITALS (9 sets, daily range): BP systolic 112–163; BP diastolic 59–83; PULSE 66–80; RESP 14–18; TEMP 36.7–37.4; O2SAT 95–100
[2024-03-20] MEDS: ceFAZolin 2,000 MG in sodium chloride 0.9% (plus) 50 ML 100 MG IV ×2 (00:12→08:37)
[2024-03-20] MEDS: ondansetron 2 mg/ML SDV 2 mL 4 MG IVP ×2 (02:25→15:46)
[2024-03-20 05:41] LABS: Basophils % 0.4 %; Eosinophils # 0.1 10^3/uL (0.0-0.8); Eosinophils % 0.7 %; Hematocrit 29.3 % (36-47); Lymphocytes # 1.1 10^3/uL (0.8-4.8); Lymphocytes % 10.2 %; Mean Corpuscular HGB Conc 34.5 g/dL (30-55); Mean Corpuscular Hemoglobin 29.6 pg (27-33); Mean Corpuscular Volume 85.9 fl (85-98); Mean Platelet Volume 9.5 fL (7.4-10.4); Monocytes # 0.8 10^3/uL (0.2-0.9); Monocytes % 7.7 %; Neutrophils % 80.5 %; Nucleated Red Blood Cells % 0 %; Platelet Count 231 10^3/cmm (157-399); Red Blood Count 3.41 10^6/uL (3.85-5.65); White Blood Count 10.68 10^3/uL (3.29-11.43)
[2024-03-20 06:26] LABS: Anion Gap 12.9 (5-19); Blood Urea Nitrogen 11 mg/dL (8-23); Calcium 8.5 mg/dL (8.5-10.5); Carbon Dioxide 25 mmol/L (22-29); Chloride 94 mmol/L (98-107); Creatinine Clr Calc Pharmacy 60.9243; Glomerular Filtration Rate 83.7 mL/min (90-130); Glucose 134 mg/dL (65-115); Osmolality Calculated 267 mOsm/kg (285-295); Potassium 3.9 mmol/L (3.5-5.1); Sodium 128 mmol/L (136-145)
[2024-03-20] MEDS: acetaminophen 1,000 MG/100 ML PIGGYBACK 400 MG IV (07:06)
[2024-03-20] MEDS: multivitamin therapeutic Tablet 1 TAB PO (08:37)
[2024-03-20] MEDS: docusate sodium 100 mg Capsule PO ×2 (08:37→17:41)
[2024-03-20] MEDS: iron polysaccharide complex 150 mg Capsule PO ×2 (08:37→17:41)
[2024-03-20] MEDS: apixaban 5 mg Tablet 2.5 MG PO ×2 (08:37→17:41)
[2024-03-20] MEDS: calcium carb-vit d 600mg/400unit 1 Tablet 1 EACH PO ×2 (08:38→17:41)
[2024-03-20] MEDS: mupirocin oint 22 gm 1 APPLIC NASAL ×2 (08:38→17:37)
[2024-03-20] MEDS: chlorhexidine gluconate 0.12% Btl 473 mL 30 ML MUCOUS MEM ×4 (08:38→20:25)
[2024-03-20] MEDS: oxyCODONE 5 mg IR Tab/Cap PO ×2 (08:53→17:40)
--- NOTE | 2024-03-20 10:09 | PC.CHAP ---
Pastoral Care Encounter/Spiritual Assessment Type of Contact [] Declined city wellness coordinator visit [] Patient/Family/Request visit [] Outpatient visit [] Follow-up visit [] Physician referral [] Code/Alert [x] Routine visit [] Staff referral [] Actively dying [] Patient sleeping [] Family support [] [] Out of room [] Palliative care [] [] Receiving care in room [] Pre-surgical visit [] Trauma [] Long length of stay [] ICU visit [] Other: Relational/Emotional Strength [x] Patient feels connected with others/family/visitors/staff [] Distress [] Loneliness/isolation [] Abandonment Spirituality of Patient [x] Person of Abi [] Attends Voodoo of their Abi [x] Believes in Prayer [] Reads Bible or Restorationist materials [] There are Spiritual issues to be addressed Fixture Fabricator Repairer Interventions [x] Prayer [x] Active listening [x] Non-anxious presence [x] Spiritual/emotional support [] Crisis/trauma care [] Spiritual counseling [] Bereavement support [] Provided bereavement packet [] Provided Bible/devotional materials [] Provided toy/stuffed animal, coloring book to patient or family member [] Provided Communion [] Anointing/[place] [] Salvation [x] Completed spiritual assessment [] Other: Impact on Illness or Injury [] Angry [] Fearful [] Anxious [] Often cries [] Exhaustion [] Unable to work [] Unable to attend buddhist [] Unable to walk/stand [] Unable to read [] Unable to drive [] Unable to eat/drink [] Unable to sleep [] Unable to be with family [] Patient intubated [] Other: Summary Time spent with patient 5 min
[2024-03-20 13:56] LABS: Anion Gap 12.8 (5-19); Blood Urea Nitrogen 8 mg/dL (8-23); Calcium 8.4 mg/dL (8.5-10.5); Carbon Dioxide 26 mmol/L (22-29); Chloride 86 mmol/L (98-107); Creatinine Clr Calc Pharmacy 61.0436; Glucose 152 mg/dL (65-115); Osmolality Calculated 253 mOsm/kg (285-295); Potassium 3.8 mmol/L (3.5-5.1); Sodium 121 mmol/L (136-145)
--- NOTE | 2024-03-20 14:34 | P.PN_ITS ---
Subjective 2 Subjective: Patient seen and examined today she just had she felt a little more pain this time around as well as she has been more nauseous and had some nausea and vomiting. Recheck of her sodium is 128 this morning I called the hospitalist with a recheck at this afternoon which continued to downtrend the hospitalist team has been consulted for evaluation and treatment recommendations for her low sodium. Vitals/I&O/Wt Last Vital Signs Temp 98.4 F 03/20/24 12:00 Pulse 66 03/20/24 12:00 Resp 18 03/20/24 12:00 BP 147/72 03/20/24 12:00 Pulse Ox 100 03/20/24 12:00 O2 Del Method Room Air 03/20/24 12:00 03/19/24 03/20/24 03/20/24 22:59 06:59 14:59 Intake Total 1640 / 2180 1212.5 / 3392.5 480 / 480 Output Total 1999 / 2825 Balance -360 / -645 1212.5 / 567.5 480 / 480 Weight last 48 hrs Weight 119 lb 9.6 oz Weight 119 lb Weight 119 lb Physical Exam 2 Narrative: Left knee examination: Dressing on in place, clean dry and intact. No evidence of saturation. Patient has normal postoperative swelling and tenderness to palpation to the knee. Compartments are soft compressible,'s calf soft and nontender. Sensations intact to light touch distally. Distal pulses are palpable. Patient is able to wiggle toes as well as plantarflex and dorsiflex ankle. Urinary Catheter Management: Lyles: Cath Placed During This Visit: yes, but has since been removed by the nurse Reason for Continuing Indwelling Catheter: Decision to DC Catheter Urinary Catheter Date of Insertion: 03/19/24 Urinary Catheter Time of Insertion: 07:40 Date Urinary Catheter Removed: 03/20/24 Time Urinary Catheter Discontinued: 07:23 Data 03/20/24 04:47 03/20/24 13:23 Xray Ortho: Radiologist's impression: Ordering Provider/Ordering MD: Sen Hart Date of Service: 03/19/24 Procedure(s): XR knee LT 1-2V 01266 Accession Number(s): [id number] Report Number: [id number] PROCEDURE INFORMATION: Exam: XR Left Knee Exam date and time: 03/19/2024 9:58 AM Age: 68 years old Clinical indication: Device placement; Joint replacement hardware; Prior surgery; Surgery date: Post-operative (0-2 days); Surgery type: Post L tka; Additional info: Post L tka, do in pacu TECHNIQUE: Imaging protocol: Radiologic exam of the left knee. Views: 1 or 2 views. COMPARISON: CT knee LT [facility] [id number] 02/22/2024 12:37 PM FINDINGS: Bones/joints: Status post left total knee arthroplasty without evidence of hardware abnormality. Postsurgical emphysema. Normal alignment. Soft tissues: Postsurgical emphysema. XR/XR knee LT 1-2V [id number] IMPRESSION: Status post left total knee arthroplasty without evidence of hardware abnormality. A&P Assessment and plan (1) Status post total left knee replacement using cement: (2) Status post total right knee replacement using cement: Plan A.m. labs reviewed Downtrended sodium and recheck was downtrending consulted internal medicine appreciate their recommendations Will hold on discharge today due to low sodium appreciate internal medicine's recommendations and assistance with care X-rays reviewed?stable total knee arthroplasty PT/OT Pain control Weight-bear as tolerate left lower extremity Dressing change as needed Complete postoperative antibiotics Orthopedics will continue to follow and plan to see patient tomorrow with goals of hopefully discharge tomorrow once her sodium has been corrected. PDMP PDMP Reviewed: Not Reviewed Attestations 2 Medical Necessity Statement*: Ongoing care status post left total knee arthroplasty, postoperative hyponatremia being worked up by internal medicine Coding Level of Care Code Acute Code for Chg Fwd Diagnoses Status post total left knee replacement using cement Z96.652 Status post total right knee replacement using cement Z96.651 Time Spent (min) 20
[2024-03-20] MEDS: sodium chloride 0.9% 1,000 ML 75 ML IV (17:38)
--- NOTE | 2024-03-20 18:25 | XRR_ITS ---
PROCEDURE INFORMATION: Exam: XR Chest Exam date and time: 03/20/2024 7:22 PM Age: 68 years old Clinical indication: Other: Hypoxia TECHNIQUE: Imaging protocol: Radiologic exam of the chest. Views: 1 view. COMPARISON: No relevant prior studies available. FINDINGS: Lungs: Bibasilar linear opacities likely reflecting atelectasis. No lobar consolidation. Pleural spaces: Unremarkable. No pleural effusion. No pneumothorax. Heart/Mediastinum: Unremarkable. No cardiomegaly. Bones/joints: Unremarkable. XR/XR chest 1V portable [id number] IMPRESSION: As above.
[2024-03-20] MEDS: sodium chloride 1 gm Tablet PO (18:51)
[2024-03-20 20:36] LABS: NT Pro B Type Natriuretic Pept 689 pg/mL (0-125); Sodium 125 mmol/L (136-145)
[2024-03-20 21:03] LABS: Bilirubin Urine Negative (Negative); Blood Urine Negative (Negative); Glucose Urine UA Negative (Normal); Ketones Urine Negative (Negative); Leukocyte Esterase Urine Negative (Negative); Nitrate Urine Negative (Negative); Protein Urine Negative (Negative); Specific Gravity, Urine 1.005 (1.005-1.030); Urine Appearance Clear (CLEAR); Urine Color Yellow (Yellow); Urobilinogen Urine 0.2 mg/dL (Negative); pH Urine 6.5 (5-7)
[2024-03-20 21:07] LABS: Add Urine Microscopic? YES; Bacteria Urine None Seen /hpf; Hyaline Casts Urine 0-4 /lpf; RBC Urine 0-2 /hpf (0-2); Squamous Epithelial Cell Urine 0-5 /hpf (0-5); WBC Urine 0-5 /hpf (0-5)
[2024-03-20 21:13] LABS: Potassium, Radom Urine 9 mmol/L; Urine Random Chloride 27 mmol/L; Urine Random Sodium 29 mmol/L
[2024-03-20 21:48] LABS: Estmated Average Glucose 108; Hemoglobin A1C 5.4 % (4.0-6.0)
--- NOTE | 2024-03-20 22:01 | P.CONIM_ITS ---
Providers/Reason For Consult 2 Attending Physician: Sen Hart DO Primary Care Provider: Zackary Kessler History of Present Illness History of Present Illness Mera Montalvo is a 68 year old female Medications/Allergies Home Medications ?Medication ?Instructions ?Recorded ?Confirmed ?Last Taken ?Type No Known Home Medications 01/31/24 02/05/08 Unknown History Allergies Allergy/AdvReac Type Severity Reaction Status Date / Time Sulfa (Sulfonamide Allergy Intermediate rash Verified 03/15/24 12:13 Antibiotics) Current Medications Generic Name Dose Route Start Last Admin Trade Name Freq PRN Reason Stop Dose Admin Apixaban 2.5 mg 03/20/24 09:00 03/20/24 17:41 Apixaban 5 Mg Tablet PO 2.5 mg BID COLIN Administration Calcium Carbonate 1 each 03/19/24 11:11 03/20/24 17:41 Calcium Carb-Vit D 600mg/400unit 1 Tablet PO 1 each BID COLIN Administration Chlorhexidine Gluconate 30 ml 03/19/24 11:11 03/20/24 20:25 Chlorhexidine Gluconate 0.12% Btl 473 Ml MUCOUS MEM 30 ml QID COLIN Administration Docusate Sodium 100 mg 03/19/24 11:11 03/20/24 17:41 Docusate Sodium 100 Mg Capsule PO 100 mg BID COLIN Administration Sodium Chloride 1,000 mls @ 75 mls/hr 03/20/24 17:00 03/20/24 17:38 Sodium Chloride 0.9% IV 75 mls/hr .[id number] COLIN Administration Methocarbamol 500 mg 03/19/24 19:40 03/19/24 21:07 Methocarbamol 500 Mg Tablet PO 500 mg TID PRN Administration MUSCLE SPASMS Multivitamins Therapeutic 1 tab 03/19/24 11:11 03/20/24 08:37 Multivitamin Therapeutic Tablet PO 1 tab DAILY COLIN Administration Mupirocin 1 applic 03/19/24 11:11 03/20/24 17:37 Mupirocin Oint 22 Gm NASAL 03/24/24 11:10 1 applic BID COLIN Administration Protocol Ondansetron HCl 4 mg 03/19/24 11:11 03/20/24 15:46 Ondansetron 2 Mg/Ml Sdv 2 Ml IVP 4 mg Q6H PRN Administration NAUSEA AND VOMITING Oxycodone HCl 5 mg 03/19/24 11:11 03/20/24 17:40 Oxycodone 5 Mg Ir Tab/Cap PO 5 mg Q4H PRN Administration MODERATE PAIN Polysaccharide Iron Complex 150 mg 03/19/24 11:11 03/20/24 17:41 Iron Polysaccharide Complex 150 Mg Capsule PO 150 mg BIDWM COLIN Administration PFSH Acute 2 PFSH: Social History Smoking and tobacco/nicotine status: never used tobacco/nicotine Alcohol intake: current Alcohol intake frequency: 0-2 Drinks per Day Substance/Drug Use: never Vitals/I&O/Wt Last Vital Signs Temp 99.3 F 03/20/24 19:13 Pulse 76 03/20/24 19:13 Resp 16 03/20/24 19:13 BP 153/66 03/20/24 19:13 Pulse Ox 96 03/20/24 19:13 O2 Del Method Room Air 03/20/24 19:13 03/20/24 03/20/24 03/20/24 06:59 14:59 22:59 Intake Total 1212.5 / 3392.5 480 / 480 1150 / 1630 Balance 1212.5 / 567.5 480 / 480 1150 / 1630 Weight last 48 hrs Weight 54.25 kg Weight 53.977 kg Weight 53.977 kg Physical Exam 2 Urinary Catheter Management: Lyles: Cath Placed During This Visit: yes, but has since been removed by the nurse Reason for Continuing Indwelling Catheter: Decision to DC Catheter Urinary Catheter Date of Insertion: 03/19/24 Urinary Catheter Time of Insertion: 07:40 Date Urinary Catheter Removed: 03/20/24 Time Urinary Catheter Discontinued: 07:23 Data 03/20/24 04:47 03/20/24 19:30 A&P PDMP PDMP Reviewed: Not Reviewed Coding Level of Care Code Acute Code for Eduard Childress
[2024-03-21 00:18] LABS: Sodium 129 mmol/L (136-145)
[2024-03-21] MEDS: cyclobenzaprine 10 mg Tablet 5 MG PO (00:40)
[2024-03-21 04:36] VITALS: BP 170/73; PULSE 76; RESP 14; TEMP 37.1; O2SAT 95
[2024-03-21 05:06] LABS: Basophils % 0.4 %; Eosinophils # 0.2 10^3/uL (0.0-0.8); Eosinophils % 3.1 %; Hematocrit 29.3 % (36-47); Lymphocytes # 1.1 10^3/uL (0.8-4.8); Lymphocytes % 13.7 %; Mean Corpuscular HGB Conc 34.1 g/dL (30-55); Mean Corpuscular Hemoglobin 29.6 pg (27-33); Mean Corpuscular Volume 86.7 fl (85-98); Mean Platelet Volume 9.5 fL (7.4-10.4); Monocytes # 0.7 10^3/uL (0.2-0.9); Monocytes % 9.4 %; Neutrophils # 5.58 10^3/uL (1.8-7.7); Nucleated Red Blood Cells % 0 %; Platelet Count 212 10^3/cmm (157-399); Red Blood Count 3.38 10^6/uL (3.85-5.65); Red Cell Distribution Width 12.1 % (12.1-15.1); White Blood Count 7.65 10^3/uL (3.29-11.43)
[2024-03-21 05:26] LABS: Anion Gap 11.8 (5-19); Blood Urea Nitrogen 5 mg/dL (8-23); Calcium 8.3 mg/dL (8.5-10.5); Carbon Dioxide 25 mmol/L (22-29); Chloride 100 mmol/L (98-107); Chol HDL Ratio 2.76 mg/dL (0.0-4.40); Cholesterol 160 mg/dL (0-200); Creatinine Clr Calc Pharmacy 61.0436; Glomerular Filtration Rate 123.4 mL/min (90-130); Glucose 123 mg/dL (65-115); HDL Cholesterol 58 mg/dL (60-100); LDL Cholesterol Calculated 88 mg/dL (50-129); LDL HDL Ratio 1.52 RATIO (0.00-3.22); Osmolality Calculated 275 mOsm/kg (285-295); Potassium 3.8 mmol/L (3.5-5.1); Sodium 133 mmol/L (136-145); Triglycerides 68 mg/dL (0-150)
[2024-03-21] MEDS: iron polysaccharide complex 150 mg Capsule PO (07:55)
[2024-03-21] MEDS: calcium carb-vit d 600mg/400unit 1 Tablet 1 EACH PO (07:55)
[2024-03-21] MEDS: multivitamin therapeutic Tablet 1 TAB PO (07:55)
[2024-03-21] MEDS: apixaban 5 mg Tablet 2.5 MG PO (07:55)
[2024-03-21] MEDS: docusate sodium 100 mg Capsule PO (07:55)
[2024-03-21] MEDS: chlorhexidine gluconate 0.12% Btl 473 mL 30 ML MUCOUS MEM (07:56)
[2024-03-21] MEDS: mupirocin oint 22 gm 1 APPLIC NASAL (07:56)
[2024-03-21 07:58] VITALS: BP 159/73; PULSE 85; RESP 18; TEMP 36.9; O2SAT 96; BMI 19.6
--- NOTE | 2024-03-21 11:04 | PM.DCS ---
Discharge Providers Date of Admission: 03/19/24 09:55 Date of Discharge: March 21, 2024 Attending Provider at Admission: Sen Hart DO Attending Provider at Discharge: Sen Hart DO Consults: Dr. Gunter?hospitalist Primary Care Provider: Zackary Kessler Diagnoses at Discharge Discharge Diagnosis (1) Status post total left knee replacement using cement: Status: Acute (2) Status post total right knee replacement using cement: Status: Acute Reason for Visit Reason for Visit: M17.12 Brief History: Status post left TKA Teodoro robotic assisted Hospital Course Hospital Course Patient presented to the preoperative holding area with plan for left total knee arthroplasty after patient has been worked up in the outpatient setting for failed conservative treatment of left knee degenerative joint disease. Once cleared by anesthesia for surgery patient subsequently was taken back to the operative suite underwent anesthesia per anesthesia department and then subsequently underwent a left total knee arthroplasty. Procedure was performed without any complications patient was taken to PACU in stable condition patient recovered well in PACU and then was admitted to the floor postoperatively. Patient received appropriate PT/OT, postoperative antibiotics, postoperative TXA, pain control, postoperative DVT prophylaxis. Elevation and ice. Patient encouraged for knee range of motion allowed weightbearing as tolerated to the operative lower extremity. Dressing was changed as needed, labs were monitored daily. Patient recovered well postoperatively and worked well and progressed well with therapy. Patient did have considerable drop in her sodium on postoperative day 1 as a result I did consult internal medicine for assistance in management appreciate their assistance in management and please refer to their daily progress notes and consultation note for details. Patient was observed for an additional night stay as she was having some nausea and vomiting with this. Patient was treated and the low sodium resolved on postoperative day 2. It was determined on postoperative day 2 the patient was stable for discharge from an orthopedic standpoint and medicine. Patient was comfortable with discharge and plan was discharged home. Patient received appropriate discharge instructions as well as pain medication and DVT prophylaxis postoperatively. Given appropriate instructions for dressing management. Patient will follow-up with Dr. Hart/orthopedics in the office in 2 weeks. All questions answered. Understand if there is any issues questions or concerns and contact the office. Physical Exam Narrative: Left knee examination: Dressing on in place, clean dry and intact. No evidence of saturation. Patient has normal postoperative swelling and tenderness to palpation to the knee. Compartments are soft compressible,'s calf soft and nontender. Sensations intact to light touch distally. Distal pulses are palpable. Patient is able to wiggle toes as well as plantarflex and dorsiflex ankle. Urinary Catheter Management: Lyles: Cath Placed During This Visit: yes, but has since been removed by the nurse Reason for Continuing Indwelling Catheter: Decision to DC Catheter Urinary Catheter Date of Insertion: 03/19/24 Urinary Catheter Time of Insertion: 07:40 Date Urinary Catheter Removed: 03/20/24 Time Urinary Catheter Discontinued: 07:23 Discharge Data Studies Completed and Pending Completed Studies During Hospitalization Category Date Time Status XR chest 1V portable [id number] Routine Exams 03/20/24 18:25 Completed XR knee LT 1-2V [id number] Routine Exams 03/19/24 07:47 Completed Pending at discharge Category Date Time Status Basic Metabolic Panel AM LABS Lab 03/22/24 04:00 Ordered Complete Blood Count w/Auto AM LABS Lab 03/22/24 04:00 Ordered Osmolality Urine Routine Lab 03/20/24 19:00 Received Radiology Impressions Knee X-Ray 03/19/24 07:47 IMPRESSION: Status post left total knee arthroplasty without evidence of hardware abnormality. Chest X-Ray 03/20/24 18:25 IMPRESSION: As above. Laboratory Results WBC 7.65 10^3/uL (3.29-11.43) 03/21/24 04:33 RBC 3.38 10^6/uL (3.85-5.65) L 03/21/24 04:33 Hgb 10.00 g/dL (11.27-16.99) L 03/21/24 04:33 Hct 29.3 % (36-47) L 03/21/24 04:33 MCV 86.7 fl (85-98) 03/21/24 04:33 MCH 29.6 pg (27-33) 03/21/24 04:33 MCHC 34.1 g/dL (30-55) 03/21/24 04:33 RDW 12.1 % (12.1-15.1) 03/21/24 04:33 Plt Count 212 10^3/cmm (157-399) 03/21/24 04:33 MPV 9.5 fL (7.4-10.4) 03/21/24 04:33 Neut % (Auto) 73.0 % 03/21/24 04:33 Lymph % (Auto) 13.7 % 03/21/24 04:33 [place] % (Auto) 9.4 % 03/21/24 04:33 Eos % (Auto) 3.1 % 03/21/24 04:33 Baso % (Auto) 0.4 % 03/21/24 04:33 Neut # (Auto) 5.58 10^3/uL (1.8-7.7) 03/21/24 04:33 Lymph # (Auto) 1.1 10^3/uL (0.8-4.8) 03/21/24 04:33 [place] # (Auto) 0.7 10^3/uL (0.2-0.9) 03/21/24 04:33 Eos # (Auto) 0.2 10^3/uL (0.0-0.8) 03/21/24 04:33 Baso # (Auto) 0.0 10^3/uL (0.0-0.1) 03/21/24 04:33 Nucleated RBC % (auto) 0 % 03/21/24 04:33 Nucleated RBCs # 0.0 /100WBC 03/21/24 04:33 Sodium 133 mmol/L (136-145) L 03/21/24 04:33 Potassium 3.8 mmol/L (3.5-5.1) 03/21/24 04:33 Chloride 100 mmol/L (98-107) 03/21/24 04:33 Carbon Dioxide 25 mmol/L (22-29) 03/21/24 04:33 Anion Gap 11.8 (5-19) 03/21/24 04:33 BUN 5 mg/dL (8-23) L 03/21/24 04:33 Creatinine 0.5 mg/dL (0.5-0.9) 03/21/24 04:33 GFR Calculation 123.4 mL/min (90-130) 03/21/24 04:33 Glucose 123 mg/dL (65-115) H 03/21/24 04:33 Estimat Average Glucose 108 03/20/24 04:47 Hemoglobin A1c 5.4 % (4.0-6.0) 03/20/24 04:47 Calculated Osmolality 275 mOsm/kg (285-295) L 03/21/24 04:33 Calcium 8.3 mg/dL (8.5-10.5) L 03/21/24 04:33 NT-Pro-B Natriuret Pep 689 pg/mL (0-125) H 03/20/24 19:30 Triglycerides 68 mg/dL (0-150) 03/21/24 04:33 Cholesterol 160 mg/dL (0-200) 03/21/24 04:33 LDL Cholesterol, Calc 88 mg/dL (50-129) 03/21/24 04: HDL Cholesterol 58 mg/dL (60-100) L 03/21/24 04:33 LDL/HDL Ratio 1.52 RATIO (0.00-3.22) 03/21/24 04: Cholesterol/HDL Ratio 2.76 mg/dL (0.0-4.40) 03/21/24 04:33 Urine Color Yellow (Yellow) 03/20/24 19:00 Urine Appearance Clear (CLEAR) 03/20/24 19:00 Urine pH 6.5 (5-7) 03/20/24 19:00 Ur Specific Outing 1.005 (1.005-1.030) 03/20/24 19:00 Urine Protein Negative (Negative) 03/20/24 19:00 Urine Glucose (UA) Negative (Normal) 03/20/24 19:00 Urine Ketones Negative (Negative) 03/20/24 19:00 Urine Blood Negative (Negative) 03/20/24 19:00 Urine Nitrate Negative (Negative) 03/20/24 19:00 Urine Bilirubin Negative (Negative) 03/20/24 19:00 Urine Urobilinogen 0.2 mg/dL (Negative) 03/20/24 19:00 Ur Leukocyte Esterase Negative (Negative) 03/20/24 19:00 Urine RBC 0-2 /hpf (0-2) 03/20/24 19:00 Urine WBC 0-5 /hpf (0-5) 03/20/24 19:00 Ur Squamous Epith Cells 0-5 /hpf (0-5) 03/20/24 19:00 Amorphous Sediment Not Reportable 03/20/24 19:00 Urine Bacteria None seen /hpf (NONE) 03/20/24 19:00 Hyaline Casts 0-4 /lpf H 03/20/24 19:00 Ur Random Sodium 29 mmol/L 03/20/24 19:00 Ur Random Potassium 9 mmol/L 03/20/24 19:00 Ur Random Chloride 27 mmol/L 03/20/24 19:00 Blood Type O Positive 03/19/24 06:07 Rho(D) Type Rh positive 03/19/24 06:07 Antibody Screen Negative 03/19/24 06:07 Vitals Last Vital Signs Temp 98.4 F 03/21/24 07:58 Pulse 85 03/21/24 07:58 Resp 18 03/21/24 07:58 BP 159/73 03/21/24 07:58 Pulse Ox 96 03/21/24 07:58 O2 Del Method Room Air 03/21/24 07:58 Discharge Plan Discharge Patient Disposition: Home Health Service Condition: Stable Prescriptions: New Eliquis 2.5 mg tablet 2.5 mg PO BID 14 Days Qty: 28 0RF methocarbamol 500 mg tablet 500 mg PO TID PRN (Reason: muscle spasms/pain) 14 Days Qty: 42 0RF No Action Calcium 600 + D(3) 600 mg-10 mcg (400 unit) tablet 1 tab PO DAILY 30 Days Qty: 30 0RF Discharge Orders: Discharge Order (Routine); Ordered 03/21/24 Ordered By: Sen Hart Referrals: [facility]) [Outside] Darrian Hart PA [Physician Hand Painter] - 04/03/24 9:00 am Discharge Diet: Regular Discharge Activity: Limit activity as instructed Patient Instructions: Ondansetron (By mouth), Apixaban (By mouth), Acute Wound Care (DC), Total Knee Replacement (GEN), Opioid Safety, Post Anesthesia Care Activity Restrictions/Additional Instructions: Orthopedic discharge instructions Keep incisions clean dry and intact, leave [place] bandage dressings on in place for 7 days after that may rinse incisions with warm soapy water pat dry and redress with a dry dressing. Patient may weight-bear as tolerate to the operative extremity Utilize walker as needed Encourage knee range of motion Ice and elevate as needed for pain and swelling Can take muscle relaxer as prescribed as needed Take pain medication as prescribed Take antinausea medication as needed Pain medication can cause constipation. take [id number] stool softeners and or MiraLAX. Take prescribed Eliquis twice daily for the next 14 days for blood clot prevention May supplement for pain with Tylenol [id number] as needed(1000 mg every 8 hours-do not exceed more than 3000mg in 24-hour period) No baths or soaks Follow-up in the orthopedic office in 2 weeks Contact the office for any questions or concerns Discharge Attestations Time Spent in Discharge Care*: less than 30 min Quality Metrics Clinical Quality Measures [ No reported AMI, CVA or VTE this stay] Coding Level of Care Code Acute Code for Chg Fwd Diagnoses Status post total left knee replacement using cement Z96.652 Status post total right knee replacement using cement Z96.651 Time Spent (min) 25
[2024-03-21 11:45] VITALS: BP 153/75; PULSE 90; RESP 18; TEMP 36.6; O2SAT 97
[2024-03-21 12:08] VITALS: BP 153/75; PULSE 90; RESP 18; TEMP 36.6; O2SAT 97
--- NOTE | 2024-03-21 12:17 | PC.NURSE ---
Discussed activity orders, signs and symptoms of infection, new medications and continued medications. Went over follow up appointments. Patient and spouse verbalized understanding. Patient down in wheel chair to discharge.
[2024-03-24 14:11] LABS: Osmolality Urine 152 mOsm/kg (50-1200)
== END 2024-03-21 12:20 | disposition home health service (06) ==
LOC: MEDSURG 10:03
PROVIDERS: Physician Assistant; Student in an Organized Health Care Education/Training Program; Admitting Provider Student in an Organized Health Care Education/Training Program; PCP Family Medicine; Visit Provider Student in an Organized Health Care Education/Training Program
PROC: 8E0Y0CZ Robotic Assisted Procedure of Lower Extremity, Open Approach (ICD-10-PCS; CPT 27447; principal; 2024-03-19 07:00)
DX: M17.12 Unilateral primary osteoarthritis, left knee (principal)
CPT/HCPCS: 20985; 27447; 36415; 51702; 71045; 73560; 80048; 80061; 81001; 82436; 83036; 83880; 83935; 84133; 84295; 84300; 85025; 86850; 86900; 97116; 97161; 97165; 97530; A4216; C1776; G0378; J0131; J0690; J1100; J1885; J2405; J2704; J2795; J3010; J7030; J7120

== ENCOUNTER → 2024-04-03 08:49 | Outpatient (BNVA) | payer MEDICARE, OTHER, SELFPAY | PROVIDERS: PCP Family Medicine; Visit Provider Physician Assistant | DX: Z96.652 Presence of left artificial knee joint (principal) | CPT/HCPCS: 73560; 73565; 99024 ==

== ENCOUNTER 2024-04-16 11:11 | Outpatient (RCR) | payer MEDICARE, OTHER, SELFPAY | END 2024-05-14 23:59 | disposition home or self-care (01) | LOC: SPT 11:11 | PROVIDERS: Visit Provider Student in an Organized Health Care Education/Training Program | DX: Z47.1 Aftercare following joint replacement surgery (principal); Z96.652 Presence of left artificial knee joint | CPT/HCPCS: 97110; 97161 ==

== ENCOUNTER 2024-05-15 05:47 | Outpatient (RCR) | payer MEDICARE, OTHER, SELFPAY | END 2024-06-13 23:59 | disposition home or self-care (01) | LOC: SPT 05:47 | PROVIDERS: PCP Family Medicine; Visit Provider Student in an Organized Health Care Education/Training Program | DX: Z47.1 Aftercare following joint replacement surgery (principal); Z96.652 Presence of left artificial knee joint | CPT/HCPCS: 97110; 99024 ==

== ENCOUNTER → 2024-05-15 09:31 | Outpatient (BNVA) | payer MEDICARE, OTHER, SELFPAY | PROVIDERS: PCP Family Medicine; Visit Provider Physician Assistant | DX: Z96.652 Presence of left artificial knee joint (principal) | CPT/HCPCS: 73560; 73565 ==

== ENCOUNTER → 2024-06-12 10:28 | Outpatient (BNVA) | payer MEDICARE, OTHER, SELFPAY | PROVIDERS: PCP Family Medicine; Visit Provider Student in an Organized Health Care Education/Training Program | DX: Z96.652 Presence of left artificial knee joint (principal) | CPT/HCPCS: 73560; 73565; 99213 ==

== ENCOUNTER 2024-07-10 10:10 | Outpatient (RCR) | payer MEDICARE, OTHER, SELFPAY | END 2024-07-10 10:17 | disposition home or self-care (01) | LOC: SPT 10:10 | PROVIDERS: PCP Family Medicine; Visit Provider Student in an Organized Health Care Education/Training Program | DX: Z47.1 Aftercare following joint replacement surgery (principal); Z96.652 Presence of left artificial knee joint | CPT/HCPCS: 97110 ==

== ENCOUNTER → 2024-07-18 08:40 | Outpatient (BNVA) | payer MEDICARE, OTHER, SELFPAY | PROVIDERS: PCP Family Medicine; Visit Provider Student in an Organized Health Care Education/Training Program | DX: Z96.653 Presence of artificial knee joint, bilateral (principal) | CPT/HCPCS: 73560; 73565; 99213 ==

== ENCOUNTER → 2024-11-06 10:08 | Outpatient (BNVA) | payer MEDICARE, OTHER, SELFPAY | PROVIDERS: PCP Family Medicine; Visit Provider Student in an Organized Health Care Education/Training Program | DX: Z47.1 Aftercare following joint replacement surgery (principal); Z96.653 Presence of artificial knee joint, bilateral | CPT/HCPCS: 73560; 73565; 99213 ==